=== PATIENT | female | born 1930 | race African-American/Black ===

== ENCOUNTER 2021-03-13 17:16 | Observation (INO) ==
[2021-03-13 18:56] LABS: Basophils % 0.3 % (0.0-0.8); Eosinophils # 0.1 10*3/uL (0.0-0.87); Eosinophils % 1.4 % (0.00-10.9); Hematocrit 31.3 VOL% (35.7-47.0); Hemoglobin 9.9 GM/DL (12.0-16.0); Immature Granulocytes % 0.5 %; Immature Granulocytes Absolute 0.04 #; Lymphocytes # 1.1 10*3/uL (1.4-4.0); Lymphocytes % 13.8 % (21.3-54.2); Mean Corpuscular HGB Conc 31.6 GM/DL (32-36); Mean Platelet Volume 10.8 FL (9.6-12.0); Monocytes % 9.6 % (1.7-12.7); Neutrophils % 74.4 % (38.7-73.9); Platelet Count 232 T/CUMM (130-400); Red Blood Count 3.07 MC/CUMM (3.8-5.5); Red Cell Distribution Width 14.2 % (9.3-17.3); White Blood Count 7.6 T/CUMM (4-12)
[2021-03-13 19:08] LABS: INR 1.1; PT Patient Result 11.7 SECS (10.5-12.0); Partial Thromboplastin Time 31.3 SECS (23.9-33.8)
[2021-03-13] MEDS ORDERED: MORPHINE 2 MG/1 ML SYRINGE IV STA (19:10)
[2021-03-13] MEDS ORDERED: ONDANSETRON 4 MG/2 ML VIAL IV PRN (19:10)
[2021-03-13] MEDS ORDERED: SODIUM CHLORIDE 0.9% 1,000 ML IV STA (19:10)
[2021-03-13 19:14] LABS: Alanine Aminotransferase 20 U/L (13-56); Albumin 3.8 G/DL (3.4-5.0); Alkaline Phosphatase 68 U/L (45-117); Aspartate Amino Transferase 22 U/L (0-37); Bilirubin,Total < 0.39 MG/DL (0.20-1.00); Blood Urea Nitrogen 18 MG/DL (7-18); Calcium 9.7 MG/DL (8.5-10.1); Carbon Dioxide 24 MMOL/L (21-32); Estimated Glom Filtration Rate 40 ML/MIN; Glucose 79 MG/DL (74-106); Osmolality,Calculated 273.8 MOS/KG (273-304); Potassium 5.4 MMOL/L (3.5-5.1); Sodium 137 MMOL/L (136-145); Total Protein 7.9 G/DL (6.4-8.2)
[2021-03-13] MEDS ORDERED: MORPHINE 2 MG/1 ML SYRINGE IV PRN (21:16)
[2021-03-13] MEDS ORDERED: GLUCAGON 1 MG VIAL IM PRN (21:18)
[2021-03-13] MEDS ORDERED: DEXTROSE 50% 25 GM/50 ML VIAL IV PRN (21:18)
[2021-03-13] MEDS ORDERED: hydrALAZINE 20 MG/1 ML VIAL IV PRN (21:20)
[2021-03-13] MEDS: ENOXAPARIN 40 MG/0.4 ML SYRINGE SUBCUT SCH (21:52)
[2021-03-14] MEDS: INSULIN LISPRO 100 UNIT/ML SUBCUT SCH ×4 (00:40→19:24)
[2021-03-14 06:13] LABS: Basophils % 0.6 % (0.0-0.8); Eosinophils # 0.2 10*3/uL (0.0-0.87); Eosinophils % 3.1 % (0.00-10.9); Hematocrit 29.2 VOL% (35.7-47.0); Hemoglobin 9.3 GM/DL (12.0-16.0); Immature Granulocytes % 0.4 %; Immature Granulocytes Absolute 0.03 #; Mean Corpuscular HGB Conc 31.8 GM/DL (32-36); Mean Corpuscular Volume 102.5 FL (87-102); Mean Platelet Volume 10.7 FL (9.6-12.0); Monocytes % 7.8 % (1.7-12.7); Neutrophils % 74.1 % (38.7-73.9); Platelet Count 221 T/CUMM (130-400); Red Blood Count 2.85 MC/CUMM (3.8-5.5); Red Cell Distribution Width 14.1 % (9.3-17.3); White Blood Count 7.1 T/CUMM (4-12)
[2021-03-14] MEDS: LEVOTHYROXINE 50 MCG TABLET PO SCH (06:19)
[2021-03-14 06:32] LABS: Calcium 9.4 MG/DL (8.5-10.1); Osmolality,Calculated 275.7 MOS/KG (273-304); Potassium 4.8 MMOL/L (3.5-5.1)
[2021-03-14 06:39] LABS: Folate > 24.00 NG/ML (5.38-24.0); Vitamin B12 753 PG/ML (211-911)
[2021-03-14 06:56] LABS: Ferritin 553.2 ng/mL (8-252)
[2021-03-14] MEDS: carvediloL 6.25 MG TABLET PO SCH ×2 (10:16→21:28)
[2021-03-14] MEDS: amLODIPine 10 MG TABLET PO SCH (10:16)
[2021-03-14] MEDS: GABAPENTIN 100 MG CAPSULE PO SCH ×3 (10:30→21:29)
[2021-03-14] MEDS: FERROUS SULFATE 325 MG TABLET PO SCH ×3 (10:30→21:29)
[2021-03-14] MEDS: FOLIC ACID 1 MG TABLET PO SCH (10:30)
[2021-03-14] MEDS: CALCIUM (CARBONATE)/VITAMIN D 600 MG-400 UNIT TABLET PO SCH ×2 (10:30→21:29)
[2021-03-14] MEDS: CETIRIZINE 10 MG TABLET PO SCH (10:31)
[2021-03-14] MEDS: PANTOPRAZOLE 40 MG TABLET PO SCH (10:31)
[2021-03-14] MEDS ORDERED: fentaNYL 100 MCG/2 ML VIAL ONE (10:38)
[2021-03-14] MEDS ORDERED: propofoL 200 MG/20 ML VIAL IV ONE (10:38)
[2021-03-14] MEDS ORDERED: SEVOFLURANE 1 UNIT/15 MINUTE INH ONE ×4 (10:38→12:25)
[2021-03-14] MEDS ORDERED: LIDOCAINE 2% 5 ML VIAL ONE (10:39)
[2021-03-14] MEDS ORDERED: BUPIVACAINE MPF 0.25% 30 ML VIAL ONE (10:51)
[2021-03-14] MEDS ORDERED: ceFAZolin 2,000 MG/50 ML DUPLEX IV ONE (11:00)
[2021-03-14] MEDS ORDERED: ACETAMINOPHEN INJ 1,000 MG/100 ML VIAL IV ONE (11:43)
[2021-03-14] MEDS ORDERED: PHENYLEPHRINE 1 MG/10 ML SYRINGE IV ONE (12:25)
[2021-03-14] MEDS ORDERED: GLYCOPYRROLATE 0.4 MG/2 ML VIAL ONE (12:25)
[2021-03-14] MEDS ORDERED: DEXAMETHASONE 4 MG/1 ML VIAL ONE (12:26)
[2021-03-14] MEDS ORDERED: KETOROLAC 30 MG/1 ML VIAL ONE (12:26)
[2021-03-14] MEDS ORDERED: HYDROmorphone 2 MG/1 ML VIAL ONE (12:59)
[2021-03-14] MEDS: HYDROmorphone 2 MG/1 ML VIAL IV PRN ×2 (13:00→13:25)
[2021-03-14] MEDS ORDERED: ONDANSETRON 4 MG/2 ML VIAL IV PRN (13:01)
[2021-03-14] MEDS: ENOXAPARIN 40 MG/0.4 ML SYRINGE SUBCUT SCH (21:29)
[2021-03-15] MEDS: INSULIN LISPRO 100 UNIT/ML SUBCUT SCH ×4 (01:05→18:11)
[2021-03-15] MEDS: LEVOTHYROXINE 50 MCG TABLET PO SCH (05:57)
[2021-03-15] MEDS: FERROUS SULFATE 325 MG TABLET PO SCH ×3 (09:29→21:28)
[2021-03-15] MEDS: CETIRIZINE 10 MG TABLET PO SCH (09:29)
[2021-03-15] MEDS: FOLIC ACID 1 MG TABLET PO SCH (09:29)
[2021-03-15] MEDS: CALCIUM (CARBONATE)/VITAMIN D 600 MG-400 UNIT TABLET PO SCH ×2 (09:29→21:27)
[2021-03-15] MEDS: carvediloL 6.25 MG TABLET PO SCH ×2 (09:29→21:28)
[2021-03-15] MEDS: PANTOPRAZOLE 40 MG TABLET PO SCH (09:29)
[2021-03-15] MEDS: amLODIPine 10 MG TABLET PO SCH (09:29)
[2021-03-15] MEDS: GABAPENTIN 100 MG CAPSULE PO SCH ×3 (09:29→21:28)
[2021-03-15 10:42] LABS: Hematocrit 25.7 VOL% (35.7-47.0); Hemoglobin 8.1 GM/DL (12.0-16.0)
[2021-03-15] MEDS ORDERED: DEXTROSE 50% 25 GM/50 ML VIAL IV PRN (11:05)
[2021-03-15] MEDS ORDERED: GLUCAGON 1 MG VIAL IM PRN (11:05)
[2021-03-15] MEDS: ENOXAPARIN 40 MG/0.4 ML SYRINGE SUBCUT SCH (21:28)
[2021-03-16] MEDS: INSULIN LISPRO 100 UNIT/ML SUBCUT SCH ×4 (02:40→18:17)
[2021-03-16 06:22] LABS: Basophils % 0.2 % (0.0-0.8); Eosinophils # 0.2 10*3/uL (0.0-0.87); Eosinophils % 1.8 % (0.00-10.9); Hematocrit 24.1 VOL% (35.7-47.0); Hemoglobin 7.7 GM/DL (12.0-16.0); Immature Granulocytes % 0.6 %; Immature Granulocytes Absolute 0.05 #; Lymphocytes # 1.4 10*3/uL (1.4-4.0); Lymphocytes % 15.5 % (21.3-54.2); Mean Corpuscular Volume 102.6 FL (87-102); Monocytes % 10.6 % (1.7-12.7); Neutrophils % 71.3 % (38.7-73.9); Platelet Count 173 T/CUMM (130-400); Red Blood Count 2.35 MC/CUMM (3.8-5.5); Red Cell Distribution Width 14.3 % (9.3-17.3)
[2021-03-16 06:33] LABS: Calcium 8.7 MG/DL (8.5-10.1); Osmolality,Calculated 287.3 MOS/KG (273-304); Potassium 4.8 MMOL/L (3.5-5.1)
[2021-03-16] MEDS: carvediloL 6.25 MG TABLET PO SCH ×2 (09:34→22:07)
[2021-03-16] MEDS: FERROUS SULFATE 325 MG TABLET PO SCH ×3 (09:34→22:08)
[2021-03-16] MEDS: PANTOPRAZOLE 40 MG TABLET PO SCH (09:34)
[2021-03-16] MEDS: CETIRIZINE 10 MG TABLET PO SCH (09:34)
[2021-03-16] MEDS: amLODIPine 10 MG TABLET PO SCH (09:34)
[2021-03-16] MEDS: LEVOTHYROXINE 50 MCG TABLET PO SCH (09:35)
[2021-03-16] MEDS: FOLIC ACID 1 MG TABLET PO SCH (09:35)
[2021-03-16] MEDS: GABAPENTIN 100 MG CAPSULE PO SCH ×3 (09:35→22:08)
[2021-03-16] MEDS: CALCIUM (CARBONATE)/VITAMIN D 600 MG-400 UNIT TABLET PO SCH ×2 (09:35→22:07)
[2021-03-16] MEDS ORDERED: POLYETHYLENE GLYCOL POWDER 17 GM PACK PO PRN (09:59)
[2021-03-16] MEDS ORDERED: SODIUM CHLORIDE 0.9% 1,000 ML IV PRN (10:22)
[2021-03-16] MEDS: DOCUSATE SODIUM 100 MG CAPSULE PO SCH ×2 (10:54→22:07)
[2021-03-16] MEDS: ENOXAPARIN 40 MG/0.4 ML SYRINGE SUBCUT SCH (22:08)
[2021-03-17] MEDS: INSULIN LISPRO 100 UNIT/ML SUBCUT SCH ×4 (03:02→18:04)
[2021-03-17] MEDS: LEVOTHYROXINE 50 MCG TABLET PO SCH (06:56)
[2021-03-17 07:34] LABS: Basophils % 0.5 % (0.0-0.8); Eosinophils # 0.3 10*3/uL (0.0-0.87); Hematocrit 35.8 VOL% (35.7-47.0); Immature Granulocytes % 0.6 %; Immature Granulocytes Absolute 0.05 #; Lymphocytes # 1.2 10*3/uL (1.4-4.0); Lymphocytes % 15.4 % (21.3-54.2); Mean Corpuscular HGB Conc 32.1 GM/DL (32-36); Mean Corpuscular Volume 95.7 FL (87-102); Monocytes % 10.6 % (1.7-12.7); Neutrophils % 68.9 % (38.7-73.9); Platelet Count 183 T/CUMM (130-400); Red Cell Distribution Width 17.4 % (9.3-17.3)
[2021-03-17 07:35] LABS: Hemoglobin 11.5 GM/DL (12.0-16.0); Red Blood Count 3.74 MC/CUMM (3.8-5.5)
[2021-03-17 07:36] LABS: Calcium 9.2 MG/DL (8.5-10.1); Osmolality,Calculated 280.7 MOS/KG (273-304)
[2021-03-17] MEDS: amLODIPine 10 MG TABLET PO SCH (09:59)
[2021-03-17] MEDS: PANTOPRAZOLE 40 MG TABLET PO SCH (09:59)
[2021-03-17] MEDS: DOCUSATE SODIUM 100 MG CAPSULE PO SCH ×2 (09:59→21:46)
[2021-03-17] MEDS: CALCIUM (CARBONATE)/VITAMIN D 600 MG-400 UNIT TABLET PO SCH ×2 (09:59→21:46)
[2021-03-17] MEDS: carvediloL 6.25 MG TABLET PO SCH ×2 (09:59→21:46)
[2021-03-17] MEDS: CETIRIZINE 10 MG TABLET PO SCH (09:59)
[2021-03-17] MEDS: GABAPENTIN 100 MG CAPSULE PO SCH ×3 (09:59→21:46)
[2021-03-17] MEDS: FOLIC ACID 1 MG TABLET PO SCH (09:59)
[2021-03-17] MEDS: FERROUS SULFATE 325 MG TABLET PO SCH ×3 (09:59→21:46)
[2021-03-17] MEDS: ENOXAPARIN 40 MG/0.4 ML SYRINGE SUBCUT SCH (21:46)
[2021-03-18] MEDS: INSULIN LISPRO 100 UNIT/ML SUBCUT SCH ×3 (01:24→12:02)
[2021-03-18] MEDS: CALCIUM (CARBONATE)/VITAMIN D 600 MG-400 UNIT TABLET PO SCH (08:48)
[2021-03-18] MEDS: DOCUSATE SODIUM 100 MG CAPSULE PO SCH (08:49)
[2021-03-18] MEDS: GABAPENTIN 100 MG CAPSULE PO SCH (08:49)
[2021-03-18] MEDS: FOLIC ACID 1 MG TABLET PO SCH (08:49)
[2021-03-18] MEDS: LEVOTHYROXINE 50 MCG TABLET PO SCH (08:49)
[2021-03-18] MEDS: FERROUS SULFATE 325 MG TABLET PO SCH (08:49)
[2021-03-18] MEDS: CETIRIZINE 10 MG TABLET PO SCH (08:49)
[2021-03-18] MEDS: PANTOPRAZOLE 40 MG TABLET PO SCH (08:49)
[2021-03-18] MEDS: amLODIPine 10 MG TABLET PO SCH (08:49)
[2021-03-18] MEDS: carvediloL 6.25 MG TABLET PO SCH (08:54)
[2021-03-18] MEDS ORDERED: TUBERCULIN SKIN TEST 0.1 ML SYRINGE INTRADERM ONE (09:50)
[2021-03-18 14:09] VITALS: BP 151/51
== END 2021-03-18 14:20 | disposition swing bed (61) ==
LOC: N.ED 17:16 → N.EDINP 21:12 → INTOOBSV 21:12 → N.EDINP 21:57 → N.4E 22:27
PROVIDERS: ADMIT Hospitalist; ATTEND Hospitalist